=== PATIENT | male | born 1985 | race Two or more races ===

== ENCOUNTER 2022-11-11 18:46 | Emergency (ER) | payer OTHER ==
[~2022-11-11] VITALS: Ht 175.3 cm; Wt 70.8 kg
[2022-11-11] MEDS ORDERED: SODIUM CHLORIDE 0.9% 1000ML 1,000 ML IV STA (19:29)
[2022-11-11] MEDS ORDERED: SODIUM CHLORIDE 0.9% 1000ML 1,000 ML ONE (19:37)
[2022-11-11] MEDS ORDERED: ONDANSETRON HCL INJ 2MG/ML 2ML 2 MG/ML VIAL ONE (19:37)
[2022-11-11] MEDS ORDERED: FAMOTIDINE 20 MG/2 ML VIAL IV ONE ×2 (19:38→19:45)
[2022-11-11] MEDS ORDERED: ONDANSETRON HCL INJ 2MG/ML 2ML 2 MG/ML VIAL IV ONE (19:45)
[2022-11-11] MEDS ORDERED: ONDANSETRON ODT4 MG PO (20:12)
[2022-11-11] MEDS ORDERED: FAMOTIDINE20 MG PO (20:12)
[2022-11-11] MEDS ORDERED: METOPROLOL TART25 MG PO (20:12)
== END 2022-11-11 21:24 | disposition home or self-care (01) ==
LOC: FSED 19:08
DX: R00.2 Palpitations (principal); R07.89 Other chest pain; R11.0 Nausea; I10 Essential (primary) hypertension
CPT/HCPCS: 71046; 80053; 81003; 82553; 84484; 85025; 93005; 99284; J2405; J7030